=== PATIENT | male | born 1940 ===

== ENCOUNTER 2024-09-01 14:14 | Outpatient (AMB) | payer MEDICARE, MEDICAID, SELFPAY ==
--- NOTE | 2024-09-01 14:17 | A.OFFVIS_ITS ---
Vital Signs 09/01/24 14:18 Height 5 ft 3 in Weight 227 lb 8 oz BMI 40.3 BP 154/71 H Blood Pressure Location Rt brachial Position Sitting Pulse 70 Pulse Source Pulse Oximeter Pulse Oximetry (%) 96 Oxygen Delivery Method Room Air Intake Visit Reasons: Back and leg pain/used to get inj at [facility] Allergies aspirin Allergy (Intermediate, Verified 09/01/24 14:20) Rash HPI Comments Details: Aston is very pleasant 83 years old gentleman who presents in my office with complains on the lower back pain. He reports the pain in posterior spine as well as bilateral hip joints. He reports that he had 3 surgeries of the lumbar spine and since then he has suffering intractable pain. He received caudal epidural steroid injections with [facility] pain management until recently last injection was 2 months ago. The patient reported moderate pain relief after the injection. Unfortunately his insurance changed and now he can not go to [facility] for this injections. He came to my office to receive this injections. He can not sleep because of his pain can not do activities of daily living can not take care of himself can not function normally he is retired individual. He reports that weather changes and movements aggravate his pain. Cold and oral medications make his pain slightly better. The pain is severe all day long and 8/10 on the scale of 0/10. In terms of tissue damage he describes his pain as stabbing, lancinating, sharp, cutting, lacerating, dull, sore, hurting, aching, heavy, pinching, cramping, crushing, cool, called, freezing sensation. He had multiple images of the lumbar spine. He has hardware in his back. He denies physical therapy or chiropractic manipulation massage therapy or occupational therapy. He received multiple injections with moderate to good results with [facility] pain management. Past medical history significant for dementia and arthritis. Past surgical history significant for 3 surgeries on the back right knee replacement and hip replacement. Social history he is retired individual denies smoking cigarettes drinking alcohol he denies caffeinated beverages he denies recreational drugs. 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 Lumbar radiculitis Failed back syndrome Left wrist fracture Allergic rhinitis Osteoarthritis of both knees Osteoarthritis of back Social History (Updated 09/01/24 @ 14:34 by Kamille Zhao CMA) Patient Tobacco Use Status: Never used Tobacco Review of Systems Const All systems reviewed & are unremarkable except as noted in HPI and below ENT Reports Normal hearing present Neuro Reports Normal hearing present, Denies Abnormal speech present, Denies confusion and Denies Sensory deficit (Neuro) Psych Denies confusion Physical Exam Vital Signs: Last Vital Signs Pulse 70 09/01/24 14:18 BP 154/71 H 09/01/24 14:18 Pulse Ox 96 09/01/24 14:18 Oxygen Delivery Method Room Air 09/01/24 14:18 BMI result Body Mass Index 40.3 Const General: no acute distress; No confusion Nutritional Appearance: obese morbidly obese Orientation/consciousness: patient oriented x3 and No confusion Eyes General: appearance normal, both eyes and all related structures Pupils: Equal, round and reactive pupils present EOM: EOMs intact bilaterally Neck Neck: Yes full ROM Chest Chest palpation & inspection: normal inspection of the chest Resp Effort & Inspection: normal respiratory effort, able to speak in complete sentences, normal respiratory pattern, no audible wheezes and no cough Cardio Jugular venous distension: no JVD GI Inspection: Yes normal to inspection Back/Spine/Pelvis Other: There are several scars on the surface of the posterior back of the patient, once scar is at midline and other left paramedian the scars very well-healed no redness no swelling no pathological discharge. tenderness on palpation in paraspinal spinal region of the entire lumbar spine. Flexing forward and flexing backwards aggravate the pain. Patient is able to stand only with the help of the cane. Reports severe pain with standing. Sitting alleviates his pain. Neuro General: patient oriented x3, gait normal and No confusion Cranial nerves: Yes CN's II-XII intact bilaterally, Yes Equal, round and reactive pupils present, Yes Normal hearing present and Yes Ability to bilaterally elevate shoulders present Speech: No Abnormal speech present Gait exam (Neuro): Normal gait present Motor exam (neuro): 5/5 motor strength present throughout Sensory Exam: No Sensory deficit (Neuro) Extrem General: No pedal edema Psych Speech and movement: Normal speech and movement present Affect: normal affect Attitude: cooperative Thought process: Normal thought process present Thought content: Normal thought content present Insight: Good insight present (Psych) Judgement: Good judgement present (Psych) Assessment & Plan Assessment & Plan (1) Postlaminectomy syndrome: Code(s): M96.1 - Postlaminectomy syndrome, not elsewhere classified Category: Medical (2) Radiculopathy, lumbar region: Code(s): M54.16 - Radiculopathy, lumbar region Category: Medical (3) Chronic pain syndrome: Code(s): G89.4 - Chronic pain syndrome Category: Medical Plan I will schedule this patient for caudal epidural steroid injection with catheter. Patient reports that he wants to perform this procedure under sed ation in the operating room. This procedure maybe discomforting therefore I agree with the patient and I will schedule him for the sedation covered procedure. If the caudal epidural steroid injection will not help the patient I will obtain the full list of the injections he received with [facility] pain management, also will consider possibly fresh images of the lumbar spine to obtained. Coding Level of Care Code New Pt Level 3 (85093) Diagnoses Postlaminectomy syndrome M96.1 Radiculopathy, lumbar region M54.16 Chronic pain syndrome G89.4
[2024-09-01 14:18] VITALS: BP 154/71; PULSE 70; O2SAT 96; BMI 40.3
--- OUTSIDE RECORDS SUMMARY | 2024-09-01 16:59 | XMS_ITS | Clinical Summary ---
Author Organization [facility] Address [address] [place] [phone] Phone Care Team Providers Care Freight Car Loader Name Role Phone Physician, No Pcp Primary Care Provider Unavaila ble Allergies Active Allergy Reactions Criticality Noted Date Comments Aspirin Unknown 05/08/2024 Medications furosemide (LASIX) 20 mg tablet Take 1 tablet (20 mg total) by mouth 1 (one) time each day. Active Surgical History Surgery Date Site/Laterality Comments BACK SURGERY TOTAL KNEE ARTHROPLASTY Right SHOULDER SURGERY Left EYE SURGERY Left Social History Tobacco Use Types Packs/Day Years Used Date Smoking Tobacco: Former Cigarettes Tobacco Cessation:Counseling Given: Not Answered Alcohol Use Standard Drinks/Week Comments Never 0 (1 standard drink = 0.6 oz pur e alcohol) Sex and Gender Information Value Date Recorded Sex Assigned at Not on file Legal Sex Male 9:03 AM EST Gender Identity Not on file Sexual Orientation Not on file Obstetrics History Last Filed Vital Signs Vital Sign Reading Time Taken Comments Blood Pressure 147/65 05/08/2024 5:21 PM EST Pulse 72 05/08/2024 5:21 PM EST Temperature 36.7 ??C (98.1 ??F) 05/08/2024 5:21 PM ES T Respiratory Rate 18 05/08/2024 5:21 PM EST Oxygen Saturation 98% 05/08/2024 5:21 PM EST Inhaled Oxygen Concentration - - Weight 96.6 kg (213 lb) 05/08/2024 3:28 PM EST Height 160 cm (5' 3 ) 05/08/2024 3:28 PM EST Body Mass Index 37.73 05/08/2024 3:28 PM EST Plan of Treatment Health Maintenance Due Date Last Done Comments RSV Immunization Adult Patients (1 - 1-dose 75+ series) 11/19/2014 Cholesterol Screening (Lipid Panel) 04/27/2022 Depression Screening 04/27/2022 Falls Risk Assessment 04/27/2022 Medicare Annual Wellness Visit 04/27/2022 Social Influencers of Health Screening 04/27/2022 COVID-19 Vaccine (2023- season) 2024 07/06/2023, 09/12/2021, 05/03/2021, Additional history exists DTaP,Tdap,and Td Vaccines (2 - Td or Tdap) 03/27/2031 03/27/2021 Zoster Vaccines Completed 03/26/2022, 04/12/2021 Pneumococcal Vaccine: 50+ Years Completed 07/06/2023, 04/12/2021 Influenza Vaccine Completed 03/23/2024, , 03/26/2022, Additional history exists HIB Vaccines Aged Out No longer eligi ble based on patient's age to complete this topic HPV Vaccines Aged Out No longer eligi ble based on patient's age to complete this topic Hepatitis A Vaccines Aged Out No long er eligible based on patient's age to complete this topic Hepatitis B Vaccines Aged Out No long er eligible based on patient's age to complete this topic IPV Vaccines Aged Out No longer eligi ble based on patient's age to complete this topic MMR Vaccines Aged Out No longer eligi ble based on patient's age to complete this topic Meningococcal ACWY Vaccine Aged Out N o longer eligible based on patient's age to complete this topic Meningococcal B Vaccine Aged Out No l onger eligible based on patient's age to complete this topic RSV Immunization Patients Under 20 months Aged Out No longer eligible based on patient's age to complete this topic Varicella Vaccines Aged Out No longer eligible based on patient's age to complete this topic Insurance Care Teams Freight Car Loader Relationship Specialty Start Date End Date Physician, No Pcp PCP - General 05/08/24
== END 2024-09-01 14:33 | disposition home or self-care (01) ==
PROVIDERS: PCP Family Medicine; Visit Provider Anesthesiology
DX: G89.4 Chronic pain syndrome (principal); M96.1 Postlaminectomy syndrome, not elsewhere classified; M54.16 Radiculopathy, lumbar region
CPT/HCPCS: 99204

== ENCOUNTER → 2024-09-01 14:14 | Outpatient (BNVA) | payer MEDICARE, SELFPAY | PROVIDERS: PCP Family Medicine; Visit Provider Anesthesiology | DX: M96.1 Postlaminectomy syndrome, not elsewhere classified (principal); M54.16 Radiculopathy, lumbar region; G89.4 Chronic pain syndrome | CPT/HCPCS: 99202 ==

== ENCOUNTER 2024-09-23 06:43 | Day surgery (SDC) | payer MEDICARE, MEDICAID, SELFPAY ==
--- OUTSIDE RECORDS SUMMARY | 2024-09-22 11:56 | XMS_ITS | Clinical Summary ---
Author Organization [facility] Address [address] [place] [phone] Phone Care Team Providers Care Wireline Operator Name Role Phone Physician, No Pcp Primary [...] to complete this topic Insurance Care Teams Wireline Operator Relationship Specialty Start Date End Date Physician, No Pcp PCP - General 05/08/24
--- NOTE | 2024-09-22 13:14 | HO.ANESPROP2 ---
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 Lumbar radiculitis Failed back syndrome Left wrist fracture Allergic rhinitis Osteoarthritis of both knees Osteoarthritis of back Surgical History Surgical History (Updated 09/23/24 @ 07:17 by Amber Oviedo RN) Hx of bilateral cataract extraction Hx of shoulder surgery History of back surgery History of total right knee replacement H/O lumbosacral spine surgery Social History Social History (Updated 09/01/24 @ 14:34 by Kamille Zhao CMA) Patient Tobacco Use Status: Former Tobacco user Use of substances other than those prescribed or required for medical reasons: No Are you DNR?: No Advance Directives: No Advance Directives Information Provided: Yes Meds Allergies Allergy/AdvReac Type Severity Reaction Status Date / Time aspirin Allergy Intermediate Rash Verified 09/23/24 07:17 Home Medications ?Medication ?Instructions ?Recorded ?Confirmed ?Last Taken ?Type acetaminophen 500 mg tablet mg PO 09/01/24 Unknown History docusate sodium 100 mg capsule mg PO 09/01/24 Unknown History furosemide 20 mg tablet 20 mg PO DAILY 09/01/24 Unknown History meloxicam 15 mg tablet 15 mg PO DAILY 09/01/24 09/21/24 History suvorexant 5 mg tablet (Belsomra) 5 mg PO BEDTIME PRN Insomnia 09/01/24 Unknown History Assessment and Plan Assessment Anesthesia Assessment: Chart Reviewed Documented by User: Joel Cooper MD 09/23/24 10:33 PMFSH Past Medical History Medical History 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 Has had 3 back surgeries, right TKA. Family History Family history of problems with anesthesia: No Surgical History Surgical History (Updated 09/23/24 @ 07:17 by Amber Oviedo RN) Hx of bilateral cataract extraction Hx of shoulder surgery History of back surgery History of total right knee replacement H/O lumbosacral spine surgery History of Problems with Anesthesia: No Social History Social History (Updated 09/01/24 @ 14:34 by Kamille Zhao CMA) Patient Tobacco Use Status: Former Tobacco user Use of substances other than those prescribed or required for medical reasons: No Are you DNR?: No Advance Directives: No Advance Directives Information Provided: Yes Meds Allergies Allergy/AdvReac Type Severity Reaction Status Date / Time aspirin Allergy Intermediate Rash Verified 09/23/24 07:17 Home Medications ?Medication ?Instructions ?Recorded ?Confirmed ?Last Taken ?Type acetaminophen 500 mg tablet mg PO 09/01/24 Unknown History docusate sodium 100 mg capsule mg PO 09/01/24 Unknown History furosemide 20 mg tablet 20 mg PO DAILY 09/01/24 Unknown History meloxicam 15 mg tablet 15 mg PO DAILY 09/01/24 09/21/24 History suvorexant 5 mg tablet (Belsomra) 5 mg PO BEDTIME PRN Insomnia 09/01/24 Unknown History Exam Airway Mallampati Class: II TM Dist: <=3cm Neck ROM: Full Denture: Upper Loose/Missing/Broken Teeth: Yes and Lower Heart: ok Lungs: ok Assessment and Plan Assessment Anesthesia Assessment: Anesthesia Plan Discussed Final Anesthetic Review Family History of Problems with Anesthesia: No History of Problems with Anesthesia: No NPO: Yes ASA Class: IV Final Preanesthetic Review: No Changes in Pt Med Stat, Meds/Allgs Chart Reviewed, Consent Obtained/Reviewed and Anes Risks/Benef Reviewed Patient Risk: High Procedure Risk: Intermediate Anesthetic Plan Anesthetic Plan: MAC: and Agree w/ Assess. and Plan Disposition: Standard PACU
[2024-09-23] VITALS (8 sets, daily range): BP systolic 102–147; BP diastolic 61–77; PULSE 55–68; RESP 16–18; TEMP 36.3–36.9; O2SAT 94–95; BMI 37.7
[2024-09-23] MEDS: Lactated Ringers 1,000 ML 100 ML IVCONT (07:38)
--- NOTE | 2024-09-23 10:40 | P.HPSUR_ITS ---
Pre-Procedural Eval Section A - 24 Hr Update-Section A only Date of Service: 09/23/24 The patient is an INPATIENT: No Changes since office visit: Yes Patient answered all questions The patient has been examined within 24 hours of the surgical procedure. The History & Physical has been completed within 30 days and I have reviewed it.: No Section B - Complete if H&P > 30 days Chief Complaint: Postlaminectomy syndrome,Radiculopathy, lumbar reg Details of Present Illness: as above Relevant Family History (Specify if Yes): No Relevant Social History: None Present Medications: see Short Stay Collaborative assessment Medical History: No relevant PMH History of Previous Operations: Relevant previous surgery/procedure and date(s) Allergies: Allergies Allergy/AdvReac Type Severity Reaction Status Date / Time aspirin Allergy Intermediate Rash Verified 09/23/24 07:17 Review of Systems Sugical H&P ROS: Negative: Cardiovascular, Respiratory, Neurological, Psychiatr ic, Hem-Onc, Allergic/Immunologic, Gastrointestinal, Genitourinary, Integumentary, Endocrine and Eyes/Ears/Nose/Throat and Yes, Specify: Constitution (morbid obesity) and Musculoskeletal (Postlaminectomy syndrome) Exam Surgical H&P Exam: Normal: HEENT, Normal: Heart, Normal: Lungs, Normal: Extremities, Normal: Skin and Normal: Neurological and Significant Findings: Abdomen (Grossly enlarged) Plan Diagnosis/Plan: Unchanged I have reviewed the history and physical and performed a pertinent physical examination on my patient. No changes have occurred unless specified. Time Spent With Patient Time: Total time managing care of this patient today __5 __ minutes.
[2024-09-23] MEDS: Acetaminophen 325 MG TABLET 975 MG PO (11:05)
[2024-09-23] MEDS: fentaNYL citrate/PF 100 MCG/2 ML VIAL 50 MCG IVPUSH (11:05)
--- NOTE | 2024-09-23 11:14 | PM.OP ---
Brief Operative Note Date of Service: 09/23/24 Pre-op diagnosis: Postlaminectomy syndrome, stage I decubitus Post-op diagnosis: same Procedure: Aborted procedure Surgeon: Scott Delarosa MD Anesthesia: MAC Was an Maintenance Controller used for this Procedure?: No Estimated blood loss (mL): 0 Condition: stable Disposition: PACU
--- NOTE | 2024-09-23 11:15 | P.OP_ITS ---
Operative Note Operative Note Date of Service: 09/23/24 Narrative: Aborted procedure of caudal epidural steroid injection with catheter. The patient was taken to the operating room and positioned prone on operating table. [employer] monitors were applied and patient was minimally sedated. The operating room nerve attracted my attention that there is stage I decubitus wound is exactly in the area where presumable needle insertion would be. Possibility of introducing infection into the spinal canal was considered. The case was aborted. The patient needs to heal his decubitus wound to receive this procedure.
== END 2024-09-23 13:01 | disposition home or self-care (01) ==
PROVIDERS: PCP Family Medicine; Visit Provider Anesthesiology
PROC: 3E0R3GC Introduction of Other Therapeutic Substance into Spinal Canal, Percutaneous Approach (ICD-10-PCS; CPT 62322; principal; 2024-09-23 09:40)
DX: M54.16 Radiculopathy, lumbar region (principal); M96.1 Postlaminectomy syndrome, not elsewhere classified; L89.151 Pressure ulcer of sacral region, stage 1; Z96.698 Presence of other orthopedic joint implants; M47.899 Other spondylosis, site unspecified; Z88.6 Allergy status to analgesic agent; Z98.890 Other specified postprocedural states
CPT/HCPCS: 62323; J2003; J2704; J3010; J3301; Q9967

== ENCOUNTER → 2024-09-23 06:43 | Outpatient (BNV) | payer MEDICARE, MEDICAID, SELFPAY | PROVIDERS: PCP Family Medicine; Visit Provider Anesthesiology | DX: M96.1 Postlaminectomy syndrome, not elsewhere classified (principal) | CPT/HCPCS: 99499 ==

== ENCOUNTER 2024-10-27 15:22 | Outpatient (AMB) | payer MEDICARE, MEDICAID, SELFPAY ==
--- NOTE | 2024-10-27 15:24 | MHC.OFFVIS ---
Vital Signs 10/27/24 15:27 Weight 222 lb BP 140/63 H Blood Pressure Location Lt brachial Position Sitting Respiration 18 Pulse 74 Pulse Source Pulse Oximeter Pulse Oximetry (%) 98 Oxygen Delivery Method Room Air Intake Visit Reasons: Follow Up Allergies aspirin Allergy (Intermediate, Verified 10/27/24 15:24) Rash HPI Comments Details: Aston is back in my office after successful attempt to perform caudal epidural steroid injection. Unfortunately there was maceration and the-stage 1 decubitus in the area of coccyx and lower sacral location which would be exactly the place where I would go with my needle. He was given recommendations to follow-up with his primary care physician to treat this condition and potentially have injection after that. He came today and on physical exam he still has maceration and minor decubitus changes in the that area. He would need to see his primary care physician to treat this condition. It is not only dangerous if injection will be administered through this area, it can result in more tissue damage with advancement of the process. Prior: complains on the lower back pain. He reports the pain in posterior spine as well as bilateral hip joints. He had 3 surgeries of the lumbar spine and since then he has suffering intractable pain. He received caudal epidural steroid injections with [facility] pain management until recently last injection was 2 months ago. The patient reported moderate pain relief after the injection. Unfortunately his insurance changed and now he can not go to [facility] for this injections. He came to my office to receive this injections. 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 Lumbar radiculitis Failed back syndrome Left wrist fracture Allergic rhinitis Osteoarthritis of both knees Osteoarthritis of back Surgical History (Updated 09/23/24 @ 07:17 by Amber Oviedo RN) Hx of bilateral cataract extraction Hx of shoulder surgery History of back surgery History of total right knee replacement H/O lumbosacral spine surgery Social History (Updated 09/01/24 @ 14:34 by Kamille Zhao CMA) Patient Tobacco Use Status: Former Tobacco user Review of Systems Const All systems reviewed & are unremarkable except as noted in HPI and below ENT Reports Normal hearing present Neuro Reports Normal hearing present, Denies Abnormal speech present, Denies confusion and Denies Sensory deficit (Neuro) Psych Denies confusion Physical Exam Vital Signs: Last Vital Signs Pulse 74 10/27/24 15:27 Resp 18 10/27/24 15:27 BP 140/63 H 10/27/24 15:27 Pulse Ox 98 10/27/24 15:27 Oxygen Delivery Method Room Air 10/27/24 15:27 Const General: no acute distress; No confusion Nutritional Appearance: obese morbidly obese Orientation/consciousness: patient oriented x3 and No confusion Eyes General: appearance normal, both eyes and all related structures Pupils: Equal, round and reactive pupils present EOM: EOMs intact bilaterally Neck Neck: Yes full ROM Chest Chest palpation & inspection: normal inspection of the chest Resp Effort & Inspection: normal respiratory effort, able to speak in complete sentences, normal respiratory pattern, no audible wheezes and no cough Cardio Jugular venous distension: no JVD GI Inspection: Yes normal to inspection Back/Spine/Pelvis Other: There are several scars on the surface of the posterior back of the patient, once scar is at midline and other left paramedian the scars very well-healed no redness no swelling no pathological discharge. tenderness on palpation in paraspinal spinal region of the entire lumbar spine. Flexing forward and flexing backwards aggravate the pain. Patient is able to stand only with the help of the cane. Reports severe pain with standing. Sitting alleviates his pain. Neuro General: patient oriented x3, gait normal and No confusion Cranial nerves: Yes CN's II-XII intact bilaterally, Yes Equal, round and reactive pupils present, Yes Normal hearing present and Yes Ability to bilaterally elevate shoulders present Speech: No Abnormal speech present Gait exam (Neuro): Normal gait present Motor exam (neuro): 5/5 motor strength present throughout Sensory Exam: No Sensory deficit (Neuro) Extrem General: No pedal edema Psych Speech and movement: Normal speech and movement present Affect: normal affect Attitude: cooperative Thought process: Normal thought process present Thought content: Normal thought content present Insight: Good insight present (Psych) Judgement: Good judgement present (Psych) Assessment & Plan Assessment & Plan (1) Postlaminectomy syndrome: Code(s): M96.1 - Postlaminectomy syndrome, not elsewhere classified Category: Medical (2) Radiculopathy, lumbar region: Code(s): M54.16 - Radiculopathy, lumbar region Category: Medical (3) Chronic pain syndrome: Code(s): G89.4 - Chronic pain syndrome Category: Medical Plan We will request the primary care physician to treat skin maceration and decubital 1 in the area of coccyx and lower sacrum. After that he is welcome to come back and we will attempt to perform the injection again. This will be caudal epidural steroid injection with catheter. Coding Level of Care Code Est Pt Level 3 (31040) Diagnoses Postlaminectomy syndrome M96.1 Radiculopathy, lumbar region M54.16 Chronic pain syndrome G89.4
[2024-10-27 15:27] VITALS: BP 140/63; PULSE 74; RESP 18; O2SAT 98
--- OUTSIDE RECORDS SUMMARY | 2024-10-27 17:54 | XMS_ITS | Clinical Summary ---
Author Organization [facility] Address [address] [place] [phone] Phone Care Team Providers Care Radio Program Director Name Role Phone Physician, No Pcp Primary [...] to complete this topic Insurance Care Teams Radio Program Director Relationship Specialty Start Date End Date Physician, No Pcp PCP - General 05/08/24
== END 2024-10-27 15:39 | disposition home or self-care (01) ==
LOC: HO.PMC 15:22
PROVIDERS: PCP Family Medicine; Visit Provider Anesthesiology
DX: M96.1 Postlaminectomy syndrome, not elsewhere classified (principal); M54.16 Radiculopathy, lumbar region; G89.4 Chronic pain syndrome
CPT/HCPCS: 99213

== ENCOUNTER → 2024-10-27 15:22 | Outpatient (BNVA) | payer MEDICARE, MEDICAID, SELFPAY | PROVIDERS: PCP Family Medicine; Visit Provider Anesthesiology | DX: M96.1 Postlaminectomy syndrome, not elsewhere classified (principal); M54.16 Radiculopathy, lumbar region; G89.4 Chronic pain syndrome | CPT/HCPCS: 99212 ==

== ENCOUNTER 2025-03-15 10:21 | Outpatient (REF) | payer MEDICARE, MEDICAID, SELFPAY ==
--- NOTE | ~2025-03-15 | XR_ITS ---
EXAMINATION: XR BILATERAL HIPS WITH AP PELVIS CLINICAL INFORMATION: M16.0 - Bilateral primary osteoarthritis of hip COMPARISON: None available. TECHNIQUE: AP and oblique views both coxofemoral joints. FINDINGS: No acute cortical disruption or malalignment. No lytic or blastic lesions. Sclerosis along the articular surface of the acetabulum. Asymmetric joint space narrowing, bilaterally. Sclerosis along the articular surface of the symphysis pubis. Vascular calcifications. 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 XR/XR hips YVONNE min 3V IMPRESSION: Osteoarthrosis/osteoarthritis, mild to moderate, both hips. Electronically signed by: Daniel Mclean MD 03/15/2025 11:20 AM EDT
== END 2025-03-15 10:22 | disposition home or self-care (01) ==
LOC: HO.XRAY 10:21
PROVIDERS: PCP Family Medicine; Visit Provider Anesthesiology
DX: M16.0 Bilateral primary osteoarthritis of hip (principal); M96.1 Postlaminectomy syndrome, not elsewhere classified; M54.16 Radiculopathy, lumbar region; G89.4 Chronic pain syndrome
CPT/HCPCS: 73522; 99212

== ENCOUNTER 2025-03-15 10:21 | Outpatient (AMB) | payer MEDICARE, MEDICAID, SELFPAY ==
--- NOTE | 2025-03-15 10:26 | A.OFFVIS_ITS ---
Vital Signs 03/15/25 10:30 Height 5 ft 3 in Weight 225 lb BMI 39.9 BP 144/60 H Blood Pressure Location Lt brachial Position Sitting Respiration 16 Pulse 62 Pulse Source Pulse Oximeter Pulse Oximetry (%) 94 Oxygen Delivery Method Room Air Intake Visit Reasons: Bilateral Hip Pain Cylindrical Mixer Required: No Accompanied by: Daughter Allergies aspirin Allergy (Intermediate, Verified 03/15/25 10:31) Rash HPI Comments Details: Aston is back in my office with a new complaint. He reports pain in bilateral groins and inability to walk. I suspect patient has severe discomfort in the bilateral hip joints. I suspect bilateral hip arthritis. I will send him for x-ray of the bilateral hips. History of postlaminectomy syndrome, he has a decubitus in the area of the sacral hiatus and therefore caudal epidural steroid injection was not performed for the patient. Currently he is complaining at new problem as above. Prior: complains on the lower back pain. He reports the pain in posterior spine as well as bilateral hip joints. He had 3 surgeries of the lumbar spine and since then he has suffering intractable pain. He received caudal epidural steroid injections with [facility] pain management until recently last injection was 2 months ago. The patient reported moderate pain relief after the injection. Unfortunately his insurance changed and now he can not go to [facility] for this injections. He came to my office to receive this injections. 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 Lumbar radiculitis Failed back syndrome Left wrist fracture Allergic rhinitis Osteoarthritis of both knees Osteoarthritis of back Surgical History (Updated 09/23/24 @ 07:17 by Amber Oviedo RN) Hx of bilateral cataract extraction Hx of shoulder surgery History of back surgery History of total right knee replacement H/O lumbosacral spine surgery Social History (Updated 09/01/24 @ 14:34 by Kamille Zhao CMA) Patient Tobacco Use Status: Former Tobacco user Review of Systems Const All systems reviewed & are unremarkable except as noted in HPI and below ENT Reports Normal hearing present Neuro Reports Normal hearing present, Denies Abnormal speech present, Denies confusion and Denies Sensory deficit (Neuro) Psych Denies confusion Physical Exam Vital Signs: Last Vital Signs Pulse 62 03/15/25 10:30 Resp 16 03/15/25 10:30 BP 144/60 H 03/15/25 10:30 Pulse Ox 94 03/15/25 10:30 Oxygen Delivery Method Room Air 03/15/25 10:30 BMI result Body Mass Index 39.9 Const General: no acute distress; No confusion Nutritional Appearance: obese morbidly obese Orientation/consciousness: patient oriented x3 and No confusion Eyes General: appearance normal, both eyes and all related structures Pupils: Equal, round and reactive pupils present EOM: EOMs intact bilaterally Neck Neck: Yes full ROM Chest Chest palpation & inspection: normal inspection of the chest Resp Effort & Inspection: normal respiratory effort, able to speak in complete sentences, normal respiratory pattern, no audible wheezes and no cough Cardio Jugular venous distension: no JVD GI Inspection: Yes normal to inspection Back/Spine/Pelvis Other: There are several scars on the surface of the posterior back of the patient, once scar is at midline and other left paramedian the scars very well-healed no redness no swelling no pathological discharge. tenderness on palpation in paraspinal spinal region of the entire lumbar spine. Flexing forward and flexing backwards aggravate the pain. Patient is able to stand only with the help of the cane. Reports severe pain with standing. Sitting alleviates his pain. Neuro General: patient oriented x3, gait normal and No confusion Cranial nerves: Yes CN's II-XII intact bilaterally, Yes Equal, round and reactive pupils present, Yes Normal hearing present and Yes Ability to bilaterally elevate shoulders present Speech: No Abnormal speech present Gait exam (Neuro): Normal gait present Motor exam (neuro): 5/5 motor strength present throughout Sensory Exam: No Sensory deficit (Neuro) Extrem Other: Lateral and medial rotation of the bilateral thighs cause severe discomfort in the bilateral groins more than left and less on the right. General: No pedal edema Psych Speech and movement: Normal speech and movement present Affect: normal affect Attitude: cooperative Thought process: Normal thought process present Thought content: Normal thought content present Insight: Good insight present (Psych) Judgement: Good judgement present (Psych) Assessment & Plan Assessment & Plan (1) Postlaminectomy syndrome: Code(s): M96.1 - Postlaminectomy syndrome, not elsewhere classified Category: Medical (2) Radiculopathy, lumbar region: Code(s): M54.16 - Radiculopathy, lumbar region Category: Medical (3) Chronic pain syndrome: Code(s): G89.4 - Chronic pain syndrome Category: Medical (4) Osteoarthritis of hips, bilateral: Code(s): M16.0 - Bilateral primary osteoarthritis of hip Category: Medical (5) Hip pain, bilateral: Code(s): M25.551 - Pain in right hip; M25.552 - Pain in left hip Category: Medical Plan No new issues with postlaminectomy syndrome. We did not address this issue today previously we attempted caudal epidural steroid injection however it was canceled because of the maceration in the area of the sacral hiatus. He is back in my office with a new problem. He reports severe pain in bilateral groins. He reports difficulty walking. He uses wheelchair. I will send him for bilateral x-ray of the both hips. My physical exam as above. He would need to schedule appointment with me in 2 weeks. Orders: Orders XR hips YVONNE min 3V Today M16.0 - Bilateral primary osteoarthritis of hip, M25.551 - Pain in right hip, M25.552 - Pain in left hip Coding Level of Care Code Est Pt Level 3 (19772) Diagnoses Postlaminectomy syndrome M96.1 Radiculopathy, lumbar region M54.16 Chronic pain syndrome G89.4 Osteoarthritis of hips, bilateral M16.0 Hip pain, bilateral M25.551; M25.552
[2025-03-15 10:30] VITALS: BP 144/60; PULSE 62; RESP 16; O2SAT 94; BMI 39.9
--- OUTSIDE RECORDS SUMMARY | 2025-03-15 12:49 | XMS_ITS | Clinical Summary ---
Author Organization [facility] Address [address] [place] [id number] Phone Care Team Providers Care Splicer Apprentice Name Role Phone Physician, No Pcp Primary [...] 72 05/08/2024 5:21 PM EST Temperature 36.7 C (98.1 F) 05/08/2024 5:21 PM EST Respiratory Rate 18 05/08/2024 5:21 PM EST [...] series) 11/19/2014 Cholesterol Screening (Lipid Panel) 04/27/2022 Falls Risk Assessment 04/27/2022 Medicare Annual Wellness Visit 04/27/2022 Social Influencers of Health Screening 04/27/2022 Depression Screening 05/25/2024 COVID-19 Vaccine ( season) 2025 07/06/2023, 09/12/2021, 05/03/2021, Additional history exists Influenza Vaccine (#1) 2025 , 07/06/2023, 03/26/2022, Additional history exists DTaP,Tdap,and Td Vaccines (2 - Td or Tdap) 03/27/2031 03/27/2021 Zoster Vaccines Completed 03/26/2022, 04/12/2021 Pneumococcal Vaccine: 50+ Years Completed 07/06/2023, 04/12/2021 HIB Vaccines Aged Out No longer eligi [...] patient's age to complete this topic Insurance [place] [phone] Care Teams Splicer Apprentice Relationship Specialty Start Date End Date Physician, No Pcp PCP - General 05/08/24
== END 2025-03-15 10:46 | disposition home or self-care (01) ==
LOC: HO.PMC 10:22
PROVIDERS: PCP Family Medicine; Visit Provider Anesthesiology
DX: M96.1 Postlaminectomy syndrome, not elsewhere classified (principal); M54.16 Radiculopathy, lumbar region; G89.4 Chronic pain syndrome; M16.0 Bilateral primary osteoarthritis of hip; M25.551 Pain in right hip; M25.552 Pain in left hip
CPT/HCPCS: 99213

== ENCOUNTER → 2025-03-15 10:57 | Outpatient (BNV) | payer MEDICARE, MEDICAID, SELFPAY | PROVIDERS: PCP Family Medicine; Visit Provider Radiology Diagnostic Radiology | DX: M16.0 Bilateral primary osteoarthritis of hip (principal) | CPT/HCPCS: 73522 ==